=== PATIENT | female | born 1995 | race African-American/Black ===

== ENCOUNTER 2019-07-14 21:57 | Emergency (ER) | payer SELFPAY ==
[~2019-07-14] VITALS: Ht 160 cm; Wt 63.6 kg
[2019-07-14] MEDS ORDERED: NS 1,000 ML IV ONE (22:30)
[2019-07-14] MEDS ORDERED: PROMETHAZINE INJ 25 MG/ML VIAL (J2550) IV ONE (22:30)
[2019-07-14] MEDS ORDERED: ACETAMINOPHEN 325 MG TAB As Ordered ONE (22:56)
[2019-07-14 22:58] LABS: BASO % 0.4 % (0.0-1.0); HEMATOCRIT 38.3 % (36.0-47.0); LYMPH # 0.8 10^3/uL (1.5-5.0); LYMPH % 10.7 % (24.0-44.0); MEAN CORPUSCULAR HEMOGLOBIN 28.9 pg (27.0-33.0); MEAN CORPUSCULAR HGB CONC 33.9 g/dl (32.0-36.5); MEAN CORPUSCULAR VOLUME 85.1 fl (80.0-96.0); MONO # 0.4 10^3/uL (0.0-0.8); MONO % 4.9 % (0.0-5.0); NEUTROPHILS # 6.5 10^3/uL (1.5-8.5); NEUTROPHILS % 83.6 % (36.0-66.0); PLATELET COUNT, AUTOMATED 241 10^3/uL (150-450); WHITE BLOOD COUNT 7.7 10^3/uL (4.0-10.0)
[2019-07-14] MEDS ORDERED: ACETAMINOPHEN TAB 650MG DOSE (2X325MG) PO ONE (23:15)
[2019-07-14 23:37] LABS: ALBUMIN 4.2 GM/DL (3.2-5.2); ALT/SGPT 14 U/L (12-78); BILIRUBIN,DIRECT 0.2 MG/DL (0.0-0.2); BILIRUBIN,TOTAL 0.9 MG/DL (0.2-1.0); BLOOD UREA NITROGEN 17 MG/DL (7-18); CALCIUM LEVEL 9.5 MG/DL (8.5-10.1); CARBON DIOXIDE LEVEL 19 MEQ/L (21-32); CHLORIDE LEVEL 107 MEQ/L (98-107); GLOMERULAR FILTRATION RATE > 60.0 (>60); GLUCOSE, FASTING 81 MG/DL (70-100); HCG, SERUM QUANTITATIVE 162161 MIU/ML; LIPASE 74 U/L (73-393); POTASSIUM SERUM 4.1 MEQ/L (3.5-5.1); SODIUM LEVEL 139 MEQ/L (136-145); TOTAL PROTEIN 7.7 GM/DL (6.4-8.2)
[2019-07-15] MEDS ORDERED: metroNIDAZOLE (FLAGYL) 500 MG TAB PO ONE (00:15)
[2019-07-15] MEDS ORDERED: FLAG500T PO (00:17)
[2019-07-15 00:52] VITALS: BP 105/67
--- NOTE | 2019-07-15 00:54 | REPVR ---
PROCEDURE INFORMATION: Exam: US First Trimester, Transabdominal Exam date and time: 07/14/2019 12:17 AM Age: 24 years old Clinical indication: complicated by abdominal or pelvic pain; Generalized abdominal pain; First trimester; Gestational age or lmp: 8w; ; Additional info: Pain, preg, eval for iup TECHNIQUE: Imaging protocol: Real-time transabdominal obstetrical ultrasound of the maternal pelvis and a first trimester , less than 14 weeks 0 days, with image documentation. COMPARISON: No relevant prior studies available. FINDINGS: GESTATION: Gestation: An intrauterine gestational sac is identified with good decidual reaction. This is very early in gestational and all parameters cannot be assessed therefore a survey should be performed at 18-20 weeks gestation. No definite implantation bleed can be identified on the skin surface scan. Heart rate: A pole is identified estimated at 8 weeks 0 day period there is good cardiac motion at 150 bpm. A small yolk sac can't be identified. A transvaginal scan would better identified the fetus for measurements and evaluation. Abdomen: There is only a small amount of urine in the urinary bladder. Right adnexa: The right ovary measures 2.8 cm in length by 2.6 cm in thickness. There is a 2 cm oval cyst of the right ovary probably a corpus luteum cyst. There is vascular flow of the right ovary. Left adnexa: The left ovary measures 2.2 cm in length by 1.5 cm in thickness with good vascular flow. IMPRESSION: 1. Intrauterine gestational sac identified. pole identified estimated 8 week 0 day. A transvaginal scan should be considered for better evaluation of the gestational sac and pole. This is however very early in gestation and all parameters cannot be assessed, therefore a complete survey should be done at 18 weeks to 20 weeks. 2. Corpus luteum cyst right ovary. Electronically signed by: Zaid Gomez On 07/15/2019 00:54:28 AM
[2019-07-15 01:07] LABS: CHLAMYDIA DNA AMPLIFICATION NEGATIVE (NEGATIVE); GC DNA AMPLIFICATION NEGATIVE (NEGATIVE)
[2019-07-15] MEDS ORDERED: REGL10TA6 PO (01:32)
== END 2019-07-15 01:46 | disposition home or self-care (01) ==
LOC: M ED 21:57
DX: O21.9 Vomiting of pregnancy, unspecified (principal); O23.599 Infection of other part of genital tract in pregnancy, unspecified trimester; O34.81 Maternal care for other abnormalities of pelvic organs, first trimester; Z3A.08 8 weeks gestation of pregnancy

== ENCOUNTER 2019-07-19 13:08 | Emergency (ER) | payer OTHER, SELFPAY ==
[~2019-07-19] VITALS: Ht 162.6 cm; Wt 56.0 kg
[~2019-07-19 13:08] MED LIST: FLAG500T PO; REGL10TA6 PO
[2019-07-19] MEDS ORDERED: MULTTAB20 PO (14:03)
[2019-07-19] MEDS ORDERED: NS 1,000 ML IV ONE (14:30)
[2019-07-19] MEDS ORDERED: ONDANSETRON 4MG/2ML VIAL (J2405) IV ONE (14:45)
[2019-07-19 14:50] LABS: APPEARANCE, URINE CLEAR (CLEAR); BACTERIA, URINE AUTO 1+ (NEGATIVE); BILIRUBIN, URINE AUTO NEGATIVE (NEGATIVE); BLOOD, URINE BLOOD NEGATIVE (NEGATIVE); COLOR, URINE YELLOW (YELLOW); GLUCOSE, URINE (UA) AUTO NEGATIVE (NEGATIVE); KETONE, URINE AUTO 2+ mg/dL (NEGATIVE); LEUKOCYTE ESTERASE, URINE AUTO TRACE (NEGATIVE); MUCUS, URINE SMALL (NEGATIVE); NITRITE, URINE AUTO NEGATIVE (NEGATIVE); PROTEIN, URINE AUTO 2+ mg/dL (NEGATIVE); RBC, URINE AUTO 9 /HPF (0-3); SQUAMOUS EPITHELIAL CELL UR AU 8 /HPF (0-6); UROBILINOGEN, URINE AUTO 0.2 mg/dL (0.0-2.0); WBC, URINE AUTO 4 /HPF (0-3)
[2019-07-19 14:57] LABS: BASO % 0.3 % (0.0-1.0); EOS % 0.1 % (0.0-3.0); HEMATOCRIT 39.4 % (36.0-47.0); HEMOGLOBIN 13.5 g/dl (12.0-15.5); LYMPH # 0.7 10^3/uL (1.5-5.0); LYMPH % 10.4 % (24.0-44.0); MEAN CORPUSCULAR HGB CONC 34.3 g/dl (32.0-36.5); MEAN CORPUSCULAR VOLUME 84.7 fl (80.0-96.0); MONO # 0.5 10^3/uL (0.0-0.8); MONO % 6.8 % (0.0-5.0); NEUTROPHILS # 5.5 10^3/uL (1.5-8.5); NEUTROPHILS % 82.1 % (36.0-66.0); PLATELET COUNT, AUTOMATED 253 10^3/uL (150-450); RED BLOOD COUNT 4.65 10^6/uL (4.00-5.40); WHITE BLOOD COUNT 6.7 10^3/uL (4.0-10.0)
[2019-07-19 15:22] LABS: BLOOD UREA NITROGEN 17 MG/DL (7-18); CALCIUM LEVEL 9.4 MG/DL (8.5-10.1); CARBON DIOXIDE LEVEL 21 MEQ/L (21-32); CHLORIDE LEVEL 103 MEQ/L (98-107); CREATININE FOR GFR 0.73 MG/DL (0.55-1.30); GLOMERULAR FILTRATION RATE > 60.0 (>60); GLUCOSE, FASTING 81 MG/DL (70-100); POTASSIUM SERUM 3.5 MEQ/L (3.5-5.1); SODIUM LEVEL 140 MEQ/L (136-145)
[2019-07-19] MEDS ORDERED: ONDA4TAB6 PO (16:38)
[2019-07-19] MEDS ORDERED: PYRI25TA2 PO (16:38)
[2019-07-19] MEDS ORDERED: UNIS25TA3 PO (16:38)
[2019-07-19 16:45] VITALS: BP 109/59
== END 2019-07-19 16:53 | disposition home or self-care (01) ==
LOC: M ED 13:08
DX: O21.0 Mild hyperemesis gravidarum (principal); Z3A.00 Weeks of gestation of pregnancy not specified; Z79.899 Other long term (current) drug therapy
CPT/HCPCS: 80048; 81001; 85025; 87086; 96361; 96374; 99284; J2405

== ENCOUNTER 2019-07-21 00:24 | Emergency (ER) | payer OTHER ==
[~2019-07-21] VITALS: Ht 162.6 cm; Wt 54.0 kg
[~2019-07-21 00:24] MED LIST changes: +MULTTAB20 PO; +ONDA4TAB6 PO; +PYRI25TA2 PO; +UNIS25TA3 PO
[2019-07-21] MEDS ORDERED: ONDANSETRON 4 MG ORAL DISINTEGRATING TAB (Q0162 PER 1MG) PO ONE ×2 (02:00)
[2019-07-21 02:41] VITALS: BP 119/74
== END 2019-07-21 02:30 | disposition home or self-care (01) ==
LOC: M ED 00:24
DX: O21.0 Mild hyperemesis gravidarum (principal); Z3A.08 8 weeks gestation of pregnancy; Z79.899 Other long term (current) drug therapy
CPT/HCPCS: 99283; Q0162

== ENCOUNTER 2019-07-26 09:42 | Emergency (ER) | payer OTHER ==
[~2019-07-26] VITALS: Ht 162.6 cm; Wt 52.5 kg
[2019-07-26] MEDS ORDERED: ONDANSETRON 4 MG ORAL DISINTEGRATING TAB (Q0162 PER 1MG) PO ONE (10:15)
[2019-07-26] MEDS ORDERED: ONDA4TAB6 PO (13:14)
[2019-07-26 13:24] VITALS: BP 113/70
== END 2019-07-26 13:26 | disposition home or self-care (01) ==
LOC: M ED 09:42
DX: O21.9 Vomiting of pregnancy, unspecified (principal); Z76.0 Encounter for issue of repeat prescription; Z87.59 Personal history of other complications of pregnancy, childbirth and the puerperium; Z3A.08 8 weeks gestation of pregnancy; Z79.899 Other long term (current) drug therapy
CPT/HCPCS: 80047; 81001; 84702; 87086; 99283; Q0162

== ENCOUNTER 2019-07-28 11:44 | Emergency (ER) | payer OTHER ==
[~2019-07-28] VITALS: Ht 162.6 cm; Wt 52.3 kg
[2019-07-28] MEDS ORDERED: MULTTAB20 PO (11:58)
[2019-07-28] MEDS ORDERED: METOCLOPRAMIDE INJ 10MG/2ML VIAL (J2765) IV ONE (12:30)
[2019-07-28] MEDS ORDERED: NS 1,000 ML IV ONE (12:30)
[2019-07-28 12:33] LABS: BASO % 0.2 % (0.0-1.0); EOS % 0.1 % (0.0-3.0); HEMATOCRIT 40.7 % (36.0-47.0); LYMPH % 11.9 % (24.0-44.0); MEAN CORPUSCULAR HEMOGLOBIN 28.9 pg (27.0-33.0); MEAN CORPUSCULAR HGB CONC 34.4 g/dl (32.0-36.5); MEAN CORPUSCULAR VOLUME 83.9 fl (80.0-96.0); MONO # 0.7 10^3/uL (0.0-0.8); NEUTROPHILS # 6.6 10^3/uL (1.5-8.5); NEUTROPHILS % 79.4 % (36.0-66.0); PLATELET COUNT, AUTOMATED 248 10^3/uL (150-450); RED BLOOD COUNT 4.85 10^6/uL (4.00-5.40); WHITE BLOOD COUNT 8.4 10^3/uL (4.0-10.0)
[2019-07-28 14:06] LABS: BLOOD UREA NITROGEN 22 MG/DL (7-18); CALCIUM LEVEL 9.9 MG/DL (8.5-10.1); CARBON DIOXIDE LEVEL 24 MEQ/L (21-32); CHLORIDE LEVEL 99 MEQ/L (98-107); CREATININE FOR GFR 0.66 MG/DL (0.55-1.30); GLOMERULAR FILTRATION RATE > 60.0 (>60); GLUCOSE, FASTING 77 MG/DL (70-100); HCG, SERUM QUANTITATIVE 219340 MIU/ML; POTASSIUM SERUM 3.6 MEQ/L (3.5-5.1); SODIUM LEVEL 138 MEQ/L (136-145)
[2019-07-28 15:11] VITALS: BP 127/74
== END 2019-07-28 15:19 | disposition home or self-care (01) ==
LOC: M ED 11:44
DX: O21.9 Vomiting of pregnancy, unspecified (principal); Z3A.09 9 weeks gestation of pregnancy; O26.11 Low weight gain in pregnancy, first trimester; Z79.899 Other long term (current) drug therapy
CPT/HCPCS: 80048; 81001; 84702; 85025; 87086; 96361; 96374; 99284; J2765

== ENCOUNTER 2019-07-31 11:13 | Inpatient (IN) | payer OTHER ==
[~2019-07-31] VITALS: Ht 162.6 cm; Wt 51.3 kg
[2019-07-31] MEDS ORDERED: NS 1,000 ML IV ONE (14:45)
[2019-07-31] MEDS ORDERED: METOCLOPRAMIDE INJ 10MG/2ML VIAL (J2765) IV ONE (14:45)
[2019-07-31 15:10] LABS: BASO % 0.2 % (0.0-1.0); HEMATOCRIT 41.8 % (36.0-47.0); HEMOGLOBIN 14.1 g/dl (12.0-15.5); LYMPH # 0.8 10^3/uL (1.5-5.0); LYMPH % 7.3 % (24.0-44.0); MEAN CORPUSCULAR HEMOGLOBIN 28.6 pg (27.0-33.0); MEAN CORPUSCULAR HGB CONC 33.7 g/dl (32.0-36.5); MEAN CORPUSCULAR VOLUME 84.8 fl (80.0-96.0); MONO # 0.6 10^3/uL (0.0-0.8); MONO % 5.5 % (0.0-5.0); NEUTROPHILS # 8.9 10^3/uL (1.5-8.5); NEUTROPHILS % 86.6 % (36.0-66.0); PLATELET COUNT, AUTOMATED 240 10^3/uL (150-450); RED BLOOD COUNT 4.93 10^6/uL (4.00-5.40); WHITE BLOOD COUNT 10.3 10^3/uL (4.0-10.0)
[2019-07-31 15:50] VITALS: BP 130/72
[2019-07-31 16:15] LABS: BLOOD UREA NITROGEN 17 MG/DL (7-18); CALCIUM LEVEL 10.2 MG/DL (8.5-10.1); CARBON DIOXIDE LEVEL 21 MEQ/L (21-32); CHLORIDE LEVEL 102 MEQ/L (98-107); CREATININE FOR GFR 0.64 MG/DL (0.55-1.30); GLOMERULAR FILTRATION RATE > 60.0 (>60); GLUCOSE, FASTING 85 MG/DL (70-100); POTASSIUM SERUM 3.9 MEQ/L (3.5-5.1); SODIUM LEVEL 136 MEQ/L (136-145)
[2019-07-31] MEDS: NS 1,000 ML IV SCH (17:35)
[2019-07-31] MEDS ORDERED: ONDA4TAB6 PO (17:39)
[2019-07-31] MEDS ORDERED: UNIS25TA5 PO (17:39)
[2019-07-31] MEDS ORDERED: PILL CUTTER 1 EACH XX PRN (17:45)
[2019-07-31] MEDS: PYRIDOXINE 50 MG TAB PO SCH ×2 (18:00→23:57)
--- NOTE | 2019-07-31 19:18 | HPE ---
DATE OF ADMISSION: 07/31/2019 CHIEF COMPLAINT: Intractable nausea. HISTORY OF PRESENT ILLNESS: A 24-year-old 1, para 1, 18-week who presents to the emergency room with intractable nausea and vomiting with four previous visits in the past, weight loss of 15 pounds, states that she vomits about 10-15 times a day, unable to keep liquids down. The patient has noticed this early July 2019 after New Year's when she would try to eat something and it would come up within the first few bites. She has been tolerating liquids, Gatorade and water with sips of water, worse when she lies down. She has been keeping to a bland diet as instructed by the emergency room, eating crackers, but even that does not help after a few bites. She has noted that room temperature beverages are much better, clear, usually Gatorade and water. She has been taking Unisom and Zofran every six hours but it just makes her go to sleep. The patient usually eats in the living room while watching television and has been somewhat constipated. She otherwise denies any fever, chills, abdominal pain, diarrhea. She complains of some constipation. She has had a 15-pound weight loss, previously was 130 pounds and down to 115 pounds since . The patient has not had an obstetric (OB) appointment yet. She is due to see Dr. Pineda this week. The patient has been tried on Unisom, Zofran, bananas, rice, applesauce and toast (BRAT) diet, liquids with persistent issues. She complains of little muscle aches at times, knee and back pain, and insisted that "she can not live like this." She has noted that heavy foods and odors, stuffy rooms, and her pet's urine bothers her and caused her to become nauseous. She has been attempting to eat soups but has been unsuccessful. Hospitalist was called to admit for hyperemesis gravidarum. PAST MEDICAL HISTORY: None. PAST SURGICAL HISTORY: None. SOCIAL HISTORY: No cigarette, alcohol, or recreational drug use. Currently doing online classes. She lives with her . FAMILY HISTORY: Mother and father are in their 40s. No medical problems. Maternal grandfather with diabetes. REVIEW OF SYSTEMS: Per history of present illness (HPI), 12-point system otherwise negative. PHYSICAL EXAMINATION: Temperature 97, pulse 110, respiratory rate 16, blood pressure 118/76, 100% on room air. GENERAL: Awake, alert and oriented times three, answering questions appropriately, appears her stated age. Dry mucous membranes. No thyromegaly or cervical lymphadenopathy. No jugular venous distention (JVD). Lungs are clear to auscultation. No wheezing, rales, or rhonchi. HEART: S1, S2, sinus rhythm. Abdomen is soft, nontender, nondistended. Gravid uterus. EXTREMITIES: No clubbing, cyanosis, or any pitting edema. LABORATORY DATA: White count 10.3, hemoglobin 14, hematocrit 41, platelet count 240. Sodium 136, potassium 3.9, chloride 102, bicarbonate 21, BUN 17, creatinine 0.64, glucose of 85. HCG [id number]. Urinalysis: 2+ protein, 1+ glucose, 2+ ketones, 4 urobilinogen, 4 WBC, negative bacteria. ASSESSMENT AND PLAN: A 24-year-old 1, para 1 with hyperemesis gravidarum status post five emergency room (ER) visits with no improvement on bananas, rice, applesauce and toast (BRAT) diet and liquids with small frequent meals. The patient will be admitted for supportive care, given IV fluids, resumed on vitamins one tablet daily, Reglan before meals and at bedtime along with low-dose Benadryl to prevent tardive dyskinesia, try on B6 four times a day, IV Zofran if needed. Deep vein thrombosis (DVT) prophylaxis with compression stockings. Diet: Full liquid diet. Advance to BRAT diet as tolerated. MTDD
[2019-07-31] MEDS ORDERED: METOCLOPRAMIDE INJ 10MG/2ML VIAL (J2765) IV SCH (21:00)
[2019-07-31] MEDS: diphenhydrAMINE 12.5MG/5ML ELIXIR UDC PO SCH (21:25)
[2019-07-31] MEDS: PRENATAL VITAMINS CHEWABLE TABLET PO SCH (21:26)
[2019-07-31 22:00] VITALS: BP 125/70
[2019-08-01] MEDS: PYRIDOXINE 50 MG TAB PO SCH ×4 (05:34→22:44)
[2019-08-01 06:00] VITALS: BP 114/70
[2019-08-01] MEDS: NS 1,000 ML IV SCH (06:01)
--- NOTE | 2019-08-01 07:34 | REP ---
The first trimester obstetric sonography: History: Pelvic pain. Findings: Scanning is performed transabdominally. A single living intrauterine gestation is confirmed. The embryonic pole measures 35.6 mm in crown-rump length corresponds with a 12-jshi-8-day gestational age estimate. heart rate is recorded at 163 beats per minute. No subchorionic hemorrhage is seen. No extrauterine abnormalities observed. Impression: Viable single intrauterine gestation at 10 weeks 3 days by crown-rump length. ERIC by sonography February 23, 2020. No complication is identified. Electronically Signed by Elliott Silva MD 07/31/2019 03:58 P
[2019-08-01] MEDS: METOCLOPRAMIDE INJ 10MG/2ML VIAL (J2765) IV SCH ×3 (07:59→18:28)
[2019-08-01] MEDS: PRENATAL VITAMINS CHEWABLE TABLET PO SCH (07:59)
[2019-08-01] MEDS: diphenhydrAMINE 12.5MG/5ML ELIXIR UDC PO SCH (07:59)
[2019-08-01 09:51] LABS: BLOOD UREA NITROGEN 12 MG/DL (7-18); CALCIUM LEVEL 8.5 MG/DL (8.5-10.1); CARBON DIOXIDE LEVEL 23 MEQ/L (21-32); CHLORIDE LEVEL 108 MEQ/L (98-107); CREATININE FOR GFR 0.44 MG/DL (0.55-1.30); GLOMERULAR FILTRATION RATE > 60.0 (>60); GLUCOSE, FASTING 106 MG/DL (70-100); MAGNESIUM LEVEL 1.5 MG/DL (1.8-2.4); POTASSIUM SERUM 3.4 MEQ/L (3.5-5.1); SODIUM LEVEL 139 MEQ/L (136-145)
[2019-08-01] MEDS: diphenhydrAMINE 25 MG CAP PO SCH ×2 (12:40→18:28)
[2019-08-01] MEDS: KCL 40MEQ IN D5/0.45NS 1000ML 1,000 ML IV SCH ×2 (12:41→21:10)
[2019-08-01] MEDS: THIAMINE HCL 200 MG/2 ML VIAL (J3411) IV SCH (12:42)
--- NOTE | 2019-08-01 13:26 | IPN ---
DATE: 08/01/2019 The patient this morning had two episodes of vomiting yesterday with food emesis. She describes last evening decreased appetite, persistent nausea despite around the clock Reglan, as well as diphenhydramine. The patient has no tardive dyskinesia symptoms. No abdominal pain. No fever or chills. The patient remains tachycardic despite fluid hydration, which is improved. PHYSICAL EXAMINATION: VITAL SIGNS: Temperature 98.7, pulse 85, respiratory rate 16, blood pressure 114/70, 100% on room air. GENERAL: Awake, alert, oriented times three. Answering questions appropriately. No jugular venous distention (JVD). No thyromegaly. No cervical lymphadenopathy. LUNGS: Clear to auscultation with no wheezing, rales or rhonchi. HEART: S1, S2. Sinus rhythm. No murmurs, rubs or gallops. ABDOMEN: Soft, nontender, nondistended. Positive bowel sounds. EXTREMITIES: No cyanosis, clubbing or any pitting edema. LABORATORY DATA: 07/31/2019 laboratories have been noted. Magnesium is 1.5 today with potassium of 3.4. OB ultrasound showed 10 week 3 days intrauterine gestation. ASSESSMENT AND PLAN: 24-year-old 1, para 1 at 10 weeks who presents with hyperemesis gravidarum. The patient has been kept on a BRAT diet, IV fluid hydration, antiemetics. Reglan will be increased to 10 mg IV every 6 hours, Benadryl 25 mg every 6 hours. She is continued on vitamins, pyridoxine 50 mg every 6 hours and vitamin B 100 mg IV daily. Tram Inspector consult due to failure to thrive. MTDD
[2019-08-01 14:00] VITALS: BP 114/73
[2019-08-01] MEDS ORDERED: MAG SULF 1GM/100ML (MAG RUN) 1 GM in IV 1 EA IV ONE (14:00)
[2019-08-01 22:00] VITALS: BP 121/74
[2019-08-02] MEDS: METOCLOPRAMIDE INJ 10MG/2ML VIAL (J2765) IV SCH ×2 (00:30→06:07)
[2019-08-02] MEDS: diphenhydrAMINE 25 MG CAP PO SCH ×2 (00:30→06:07)
[2019-08-02] MEDS: PYRIDOXINE 50 MG TAB PO SCH (05:26)
[2019-08-02 06:00] VITALS: BP 105/64
[2019-08-02] MEDS: THIAMINE HCL 200 MG/2 ML VIAL (J3411) IV SCH (08:30)
[2019-08-02] MEDS: PRENATAL VITAMINS CHEWABLE TABLET PO SCH (08:30)
[2019-08-02] MEDS ORDERED: DIPH25CA32 PO (10:30)
[2019-08-02] MEDS ORDERED: B-650TAB2 PO (10:30)
[2019-08-02] MEDS ORDERED: REGL10TA6 PO (10:30)
--- NOTE | 2019-08-03 12:03 | DSES ---
DATE OF ADMISSION: 08/01/2019 DATE OF DISCHARGE: 08/02/2019 PRIMARY DISCHARGE DIAGNOSES: 1. Hyperemesis gravidarum. 2. known. 3. Electrolyte abnormalities with hypokalemia, hypomagnesemia. DISCHARGE MEDICATIONS: - diphenhydramine 125 mg every 6 hours for 7 days - Reglan 10 before food, nightly for 7 days - vitamin B6 50 mg every 6 hours for 7 days - vitamin 1 tablet daily DISCHARGE INSTRUCTIONS: Patient is to have small frequent meals sitting upright for 1 hour, to have cold or room temperature food, bananas, rice, applesauce and toast (BRAT) diet, advance as tolerated, avoid strong smelling foods and hot foods until hyperemesis gravidarum resolves. HOSPITAL COURSE: This is a 24-year-old -[place] female, 10 weeks , present with persistent nausea and vomiting, decreased oral intake, 15 pound weight loss since early July seen in the emergency room five times, subsequently admitted due to intractable vomiting. The patient was put on intravenous (IV) Reglan and diphenhydramine along with pyridoxine with symptomatic relief. She was given IV fluids and tolerated her diet and subsequently discharged home. PHYSICAL EXAM ON DISCHARGE: Temperature 98.5, pulse 91, respiratory rate 17, blood pressure 105/64, 98% on room air. Generally, patient is awake, alert, oriented times three, answering questions appropriately. Lungs are clear to auscultation. No wheezing, rales or rhonchi. Heart: S1, S2, sinus rhythm. Abdomen is soft, nontender and nondistended. Positive bowel sounds. Extremities: No cyanosis, clubbing or pitting edema. LABS: White count 10, hemoglobin 14, hematocrit 41, platelet count 240. Sodium 139, potassium 3.4, chloride 108, bicarbonate 23, BUN 12, creatinine 0.4, glucose of 106. IMAGING STUDY: Obstetrical (OB) ultrasound intrauterine gestation 10 weeks 3 days by crown-rump length. No complication is identified. MTDD
== END 2019-08-02 11:23 | disposition home or self-care (01) | DRG 833 ==
LOC: M ED 11:13 → M ED INP 17:23 → ENRESERV 17:27 → M MSPAV 17:51 → OBSVTOIN 08-01 11:00
PROVIDERS: ADMIT General Practice; ATTEND General Practice
DX: O21.0 Mild hyperemesis gravidarum (principal); Z3A.21 21 weeks gestation of pregnancy; Z79.899 Other long term (current) drug therapy; R00.0 Tachycardia, unspecified; O99.282 Endocrine, nutritional and metabolic diseases complicating pregnancy, second trimester; E87.8 Other disorders of electrolyte and fluid balance, not elsewhere classified; E87.6 Hypokalemia; E83.42 Hypomagnesemia; O99.89 Other specified diseases and conditions complicating pregnancy, childbirth and the puerperium; R62.7 Adult failure to thrive

== ENCOUNTER → 2019-08-07 | Outpatient (REF) | payer OTHER ==
[~2019-08-07] MED LIST changes: +B-650TAB2 PO; +DIPH25CA32 PO; +UNIS25TA5 PO
[2019-08-07 19:15] LABS: HEMATOCRIT 35.2 % (36.0-47.0); HEMOGLOBIN 11.5 g/dl (12.0-15.5); MEAN CORPUSCULAR HEMOGLOBIN 28.3 pg (27.0-33.0); MEAN CORPUSCULAR HGB CONC 32.7 g/dl (32.0-36.5); MEAN CORPUSCULAR VOLUME 86.5 fl (80.0-96.0); PLATELET COUNT, AUTOMATED 225 10^3/uL (150-450); RED BLOOD COUNT 4.07 10^6/uL (4.00-5.40); WHITE BLOOD COUNT 6.4 10^3/uL (4.0-10.0)
[2019-08-07 20:10] LABS: HIV 1&2 SCREEN CENTAUR NEGATIVE (NEGATIVE)
[2019-08-09 10:33] LABS: HEPATITIS C VIRUS ABY INDEX < 0.0 INDEX (<0.8); RUBELLA IgG QUALITATIVE IMMUNE (IMMUNE)
[2019-08-12 08:06] LABS: HEMOGLOBIN A 97.4 % (96.4-98.8); HEMOGLOBIN A2 2.6 % (1.8-3.2); HGB SOLUBILITY Negative (Negative)
== END ==
LOC: M LAB REF 16:45
PROVIDERS: ATTEND Obstetrics & Gynecology
DX: Z36.89 Encounter for other specified antenatal screening (principal); Z3A.00 Weeks of gestation of pregnancy not specified

== ENCOUNTER 2019-08-17 08:35 | Emergency (ER) | payer OTHER ==
[~2019-08-17] VITALS: Ht 162.6 cm; Wt 50.6 kg
[2019-08-17] MEDS ORDERED: LR 1,000 ML IV ONE ×2 (09:30→11:30)
[2019-08-17] MEDS ORDERED: ONDANSETRON 4 MG ORAL DISINTEGRATING TAB (Q0162 PER 1MG) PO ONE (09:30)
[2019-08-17] MEDS ORDERED: NS 500 ML IV ONE (09:30)
[2019-08-17 10:22] LABS: HEMATOCRIT 40.9 % (36.0-47.0); HEMOGLOBIN 13.4 g/dl (12.0-15.5); MEAN CORPUSCULAR HEMOGLOBIN 28.2 pg (27.0-33.0); MEAN CORPUSCULAR HGB CONC 32.8 g/dl (32.0-36.5); MEAN CORPUSCULAR VOLUME 85.9 fl (80.0-96.0); PLATELET COUNT, AUTOMATED 290 10^3/uL (150-450); RED BLOOD COUNT 4.76 10^6/uL (4.00-5.40); WHITE BLOOD COUNT 9.6 10^3/uL (4.0-10.0)
[2019-08-17 10:24] LABS: APPEARANCE, URINE HAZY (CLEAR); BACTERIA, URINE AUTO 1+ (NEGATIVE); BILIRUBIN, URINE AUTO NEGATIVE (NEGATIVE); BLOOD, URINE BLOOD NEGATIVE (NEGATIVE); COLOR, URINE YELLOW (YELLOW); GLUCOSE, URINE (UA) AUTO 1+ mg/dL (NEGATIVE); KETONE, URINE AUTO 2+ mg/dL (NEGATIVE); LEUKOCYTE ESTERASE, URINE AUTO TRACE (NEGATIVE); MUCUS, URINE SMALL (NEGATIVE); NITRITE, URINE AUTO NEGATIVE (NEGATIVE); PROTEIN, URINE AUTO 2+ mg/dL (NEGATIVE); RBC, URINE AUTO 6 /HPF (0-3); SPECIFIC GRAVITY URINE AUTO 1.031 (1.002-1.035); SQUAMOUS EPITHELIAL CELL UR AU 4 /HPF (0-6); WBC, URINE AUTO 6 /HPF (0-3)
[2019-08-17 10:51] LABS: ALBUMIN 4.2 GM/DL (3.2-5.2); ALT/SGPT 98 U/L (12-78); BLOOD UREA NITROGEN 13 MG/DL (7-18); CALCIUM LEVEL 9.8 MG/DL (8.5-10.1); CARBON DIOXIDE LEVEL 18 MEQ/L (21-32); CHLORIDE LEVEL 108 MEQ/L (98-107); CREATININE FOR GFR 0.68 MG/DL (0.55-1.30); GLOMERULAR FILTRATION RATE > 60.0 (>60); GLUCOSE, FASTING 72 MG/DL (70-100); POTASSIUM SERUM 4.2 MEQ/L (3.5-5.1); SODIUM LEVEL 139 MEQ/L (136-145)
[2019-08-17] MEDS ORDERED: ZOFR4TAB16 PO (12:07)
[2019-08-17 13:14] VITALS: BP 105/56
== END 2019-08-17 13:13 | disposition home or self-care (01) ==
LOC: M ED 08:35
DX: O21.0 Mild hyperemesis gravidarum (principal); Z3A.12 12 weeks gestation of pregnancy; Z79.899 Other long term (current) drug therapy
CPT/HCPCS: 80053; 81001; 85027; 96360; 96361; 99284; Q0162

== ENCOUNTER → 2019-10-10 | Outpatient (CLI) | payer OTHER ==
[~2019-10-10] MED LIST changes: +ZOFR4TAB16 PO
--- NOTE | 2019-10-10 09:49 | REP ---
REASON FOR EXAM: anatomy. COMPARISON: None. Multiple ultrasonographic images of the gravid uterus show a single living intrauterine gestation in the cephalic presentation. Doppler interrogation of the heart shows a heart rate of 141 beats per minute. The placenta is anterior and not low lying. The subjective amniotic fluid volume is within normal limits. The cervix measures 3.7 cm in length and is closed. Evaluation of the maternal adnexal spaces shows no abnormalities. BPD 4.9 cm = 21 weeks 0 days HC 18.5 cm = 20 weeks 6 days AC 15.3 cm = 20 weeks 3 days FL 3.3 cm = 20 weeks 3 days The estimated weight is 358 grams which at the 54th percentile for a 20 weeks 2 day gestational age. The structures visualized as unremarkable are as follows: thalami, cavum septum pellucidum, cerebellum, cistern magna, cerebral ventricles, spine, kidneys, urinary bladder, upper and lower extremities, three vessel umbilical cord, cord insertion, stomach, four chamber heart, and right and left ventricular outflow tracts. The facial features were not optimally visualized. IMPRESSION: Single living intrauterine gestation as described above with an estimated gestational age of 20 weeks 5 days via composite criteria and an estimated date of delivery of 02/22/2020 by today's exam. No anomalies were detected, however, a followup examination is recommended to better visualize the facial features. Electronically Signed by Mahesh Rashid DO 10/10/2019 10:18 A
== END ==
LOC: M RAD 08:23
PROVIDERS: ATTEND Obstetrics & Gynecology
DX: Z34.82 Encounter for supervision of other normal pregnancy, second trimester (principal); Z36.89 Encounter for other specified antenatal screening; Z3A.20 20 weeks gestation of pregnancy

== ENCOUNTER → 2019-10-31 | Outpatient (CLI) | payer OTHER ==
--- NOTE | 2019-10-31 18:26 | REP ---
Clinical: Anatomical evaluation. Comparison: 10/10/2019 . Findings: Examination demonstrates a single live intrauterine in cephalic presentation. motion is identified by technologist. Placenta is noted anterior and grade I without evidence for placenta previa or abruption. Amniotic fluid volume is normal. Cervix measures 2.9 cm in length and appears closed. No evidence for nuchal cord. Gestational age by LMP 23 weeks 4 days with ERIC 02/23/2020 . Gestational age by current measurements 24 weeks 2 days with ERIC 02/18/2020 . FHR equals 145 beats per minute. Estimated weight 688 grams ( 68th percentile). Anatomical assessment demonstrates normal structures including cranium, choroid plexus, cavum, cerebellum/posterior fossa, facial profile lungs, four-chamber heart, diaphragm, stomach, cord insertion/three-vessel cord, kidneys/bladder, spine, and extremities. Impression: Single live intrauterine in cephalic presentation demonstrating appropriate interval growth. Continued limited evaluation of the nose/lips. Remainder of the anatomical assessment is complete and normal. Electronically Signed by Donaldo Matamoros MD 10/31/2019 06:18 P
== END ==
LOC: M RAD 13:56
PROVIDERS: ATTEND Obstetrics & Gynecology
DX: Z34.82 Encounter for supervision of other normal pregnancy, second trimester (principal); Z36.2 Encounter for other antenatal screening follow-up; Z3A.23 23 weeks gestation of pregnancy

== ENCOUNTER → 2019-12-06 | Outpatient (CLI) | payer OTHER ==
[2019-12-06 14:21] LABS: HEMATOCRIT 32.3 % (36.0-47.0); MEAN CORPUSCULAR HEMOGLOBIN 30.8 pg (27.0-33.0); MEAN CORPUSCULAR HGB CONC 34.1 g/dl (32.0-36.5); MEAN CORPUSCULAR VOLUME 90.5 fl (80.0-96.0); PLATELET COUNT, AUTOMATED 234 10^3/uL (150-450); RED BLOOD COUNT 3.57 10^6/uL (4.00-5.40)
[2019-12-09 08:26] LABS: WHITE BLOOD COUNT 8.7 10^3/uL (4.0-10.0)
== END ==
LOC: M LAB 12:58
PROVIDERS: ATTEND Obstetrics & Gynecology
DX: Z34.92 Encounter for supervision of normal pregnancy, unspecified, second trimester (principal)